=== PATIENT | male | born 1940 | race Caucasian/White ===

== ENCOUNTER → 2016-09-22 | Outpatient (CLI) | payer MEDICARE, BC ==
--- NOTE | 2016-09-22 16:29 | RADRPT ---
PROCEDURE: XR Pelvis and Hips. CLINICAL INDICATION: Pelvic pain. Bilateral hip pain. TECHNIQUE: Five views. Frontal pelvis. Frontal and lateral right hip. Frontal and lateral left hip. COMPARISON: No prior studies are available for comparison. FINDINGS: There are degenerative changes of the right hip with joint space narrowing, osteophytes, subarticula r sclerosis, subarticular cysts, and mild deformity. There are degenerative changes of the left hip with joint space narrowing, osteophytes, subarticular sclerosis, and small cysts. There is no fracture or dislocation. There is no other lytic lesion. IMPRESSION: 1. Severe degenerative changes of the right hip. 2. Moderate degenerative changes of the left hip. RPTAT: QQ .Ish Hyatt MD, MD Date Time Electronically viewed and signed by .Ish Hyatt MD, on 09/22/2016 16:29 .R/
--- NOTE | 2016-09-22 16:30 | RADRPT ---
PROCEDURE: XR Knees. CLINICAL INDICATION: Bilateral knee pain. TECHNIQUE: Total of eight views. Weightbearing frontal, oblique, and lateral views of the both kn ees. Patellar views of both knees. COMPARISON: No prior study is available for comparison. FINDINGS: There is no fracture or dislocation. The soft tissues are normal. There are degenerative changes of both knees with osteophytes arising from all 3 joint compartment m argins bilaterally. There is bilateral medial and lateral joint compartment narrowing. There is no lytic or blastic lesion. There is no radiopaque foreign body. IMPRESSION: 1. Moderate degenerative changes of both knees. RPTAT: QQ .Ish Hyatt MD, MD Date Time Electronically viewed and signed by .Ish Hyatt MD, MD on 09/22/2016 16:30 .R/
== END | disposition home or self-care (01) ==
LOC: HKI 15:04
PROVIDERS: ATTEND Orthopaedic Surgery
DX: M16.0 Bilateral primary osteoarthritis of hip (principal); M25.551 Pain in right hip; M25.552 Pain in left hip; M25.562 Pain in left knee; M25.561 Pain in right knee
CPT/HCPCS: 73523; 73564; G0463

== ENCOUNTER → 2016-10-23 | Outpatient (CLI) | payer MEDICARE, BC | END | disposition home or self-care (01) | LOC: HKI 10:58 | PROVIDERS: ATTEND Orthopaedic Surgery | DX: M25.551 Pain in right hip (principal); M16.11 Unilateral primary osteoarthritis, right hip | CPT/HCPCS: 87081; G0463 ==

== ENCOUNTER 2016-10-31 05:10 | Inpatient (IN) | payer MEDICARE, BC ==
[~2016-10-31] VITALS: Ht 188 cm; Wt 87.5 kg
[2016-10-31] VITALS (31 sets, daily range): BP systolic 113–180; BP diastolic 52–76; PULSE 42–63; RESP 5–20; Ht 188 cm; Wt 87.5 kg
[2016-10-31] MEDS ORDERED: ONDANSETRON 4 MG INJ ONE ×2 (06:06→07:05)
[2016-10-31] MEDS ORDERED: ONDANSETRON 4 MG INJ IV SCH (06:30)
[2016-10-31] MEDS ORDERED: DEXAMETHASONE 4 MG/ML 1 ML INJ IV SCH (06:30)
[2016-10-31] MEDS ORDERED: BACITRACIN 50000 UNITS INJ ONE (06:34)
[2016-10-31] MEDS ORDERED: POLYMYXIN B 500000 UNIT INJ ONE (06:37)
[2016-10-31] MEDS ORDERED: VANCOMYCIN 1 GM INJ ONE (06:37)
[2016-10-31] MEDS ORDERED: SODIUM CL BACTERIOSTATIC 30 ML INJ ONE (06:37)
[2016-10-31] MEDS ORDERED: DILT240C85 PO (06:51)
[2016-10-31] MEDS ORDERED: LIRA0.6P SQ (06:51)
[2016-10-31] MEDS ORDERED: LABE200T3 PO (06:51)
[2016-10-31] MEDS ORDERED: VITAMIN D PO (06:51)
[2016-10-31] MEDS ORDERED: METF500T4 PO (06:51)
[2016-10-31] MEDS ORDERED: LANT3I SC (06:51)
[2016-10-31] MEDS ORDERED: VALS1TAB76 PO (06:51)
[2016-10-31] MEDS ORDERED: ATOR20TA65 PO (06:51)
[2016-10-31] MEDS ORDERED: NOVO3I SC (06:51)
[2016-10-31] MEDS ORDERED: GLIP-95 PO (06:51)
[2016-10-31] MEDS ORDERED: DOCU100T9 PO (06:51)
[2016-10-31] MEDS ORDERED: ENAL10TA PO (06:51)
[2016-10-31] MEDS ORDERED: CLON-379 PO (06:51)
[2016-10-31] MEDS ORDERED: HYDR-906 PO (06:51)
[2016-10-31] MEDS ORDERED: ZOLP5TAB PO (06:51)
[2016-10-31] MEDS ORDERED: BUPIVACAINE LIPOSOME/PF 266 MG/20 ML VIAL INFIL SCH (07:00)
[2016-10-31] MEDS ORDERED: traMADOL 50 MG TAB X 1 DOSE PO SCH (07:00)
[2016-10-31] MEDS ORDERED: TRANEXAMIC ACID 920 MG in SOD CHLORIDE 0.9% 100 ML IVPB SCH (07:00)
[2016-10-31] MEDS ORDERED: TRANEXAMIC ACID 920 MG in SOD CHLORIDE 0.9% 90.8 ML IV SCH (07:00)
[2016-10-31] MEDS ORDERED: oxyCODONE (CR) 10 MG TAB [oxyCONTIN] X1 DOSE PO SCH (07:00)
[2016-10-31] MEDS ORDERED: LACTATED RINGER'S 1,000 ML IV SCH (07:00)
[2016-10-31] MEDS ORDERED: CEFAZOLIN 2GM/50 ML (PMX) 50 ML X1 BEFORE INCISION IVPB SCH (07:00)
[2016-10-31] MEDS ORDERED: PAIN COCKTAIL-CEFUROXIME IRR SCH ×7 (07:00)
[2016-10-31] MEDS ORDERED: CELECOXIB 400 MG PO X1 DOSE PO SCH (07:00)
[2016-10-31] MEDS ORDERED: PREGABALIN 300 MG PO X1 PO SCH (07:00)
[2016-10-31] MEDS ORDERED: NEOSTIGMINE 3 MG/3 ML SYRINGE ONE (07:04)
[2016-10-31] MEDS ORDERED: GLYCOPYRROLATE 0.4 MG INJ ONE (07:04)
[2016-10-31] MEDS ORDERED: CEFAZOLIN 1 GM INJ ONE (07:04)
[2016-10-31] MEDS ORDERED: ROCURONIUM 50 MG INJ ONE (07:04)
[2016-10-31] MEDS ORDERED: PROPOFOL 20 ML ONE (07:04)
[2016-10-31] MEDS ORDERED: FENTAnyl 50 MCG/ML VIAL ONE (07:05)
[2016-10-31] MEDS ORDERED: MIDAZOLAM 1 MG/ML 2 ML INJ ONE (07:05)
[2016-10-31] MEDS ORDERED: DEXAMETHASONE 4 MG/ML 1 ML INJ ONE (07:05)
--- NOTE | 2016-10-31 07:17 | HPN ---
Date/Time of Note Date/Time of Note DATE: 10/31/16 TIME: 07:17 Interval H&P Admission Note Pt. seen H&P reviewed: No system changes No changes from H&P on 10/18/[address] Alexandr ALVAREZ,MAGALI Sneed MD Oct 31, 2016 07:17
[2016-10-31] MEDS ORDERED: MINERAL OIL LIGHT 10 ML VIAL ONE (07:25)
[2016-10-31] MEDS ORDERED: OXYCODONE/ACETAMINOPHEN (5/325) TAB PO PRN ×2 (08:00)
[2016-10-31] MEDS ORDERED: LABETALOL HCL 20MG INJ IV PRN (08:00)
[2016-10-31] MEDS ORDERED: EPHEDrine SULFATE 50 MG/5 ML SYG IV PRN (08:00)
[2016-10-31] MEDS ORDERED: FENTAnyl 50 MCG/ML VIAL IV PRN ×3 (08:00)
[2016-10-31] MEDS ORDERED: TRIMETHOBENZAMIDE 100 MG/ML VIAL IM PRN (08:00)
[2016-10-31] MEDS ORDERED: hydrALAzine 20 MG INJ IV PRN (08:00)
[2016-10-31] MEDS ORDERED: MEPERIDINE 25 MG INJ IV PRN (08:00)
[2016-10-31] MEDS ORDERED: MIDAZOLAM 1 MG/ML 2 ML INJ IV PRN (08:00)
[2016-10-31] MEDS ORDERED: ONDANSETRON 4 MG INJ IV PRN ×2 (08:00→10:00)
[2016-10-31] MEDS ORDERED: HYDROmorphONE (0.2 MG/ML) 10ML SYG IV PRN ×3 (08:00)
[2016-10-31] MEDS ORDERED: DIPHENHYDRAMINE 50 MG INJ IV PRN (08:00)
[2016-10-31] MEDS ORDERED: ETOMIDATE 20 MG INJ ONE (08:52)
[2016-10-31] MEDS ORDERED: PROPOFOL 100 ML ONE (08:53)
[2016-10-31] MEDS ORDERED: EXPAREL NOTE (BUPIVICAINE LIPOSOMAL) XX SCH (10:00)
[2016-10-31] MEDS ORDERED: HYDROmorphONE 1 MG/ML SYG IV PRN (10:00)
[2016-10-31] MEDS ORDERED: NA PHOSPHATE/BIPHOS 133 ML ENEMA PR PRN (10:00)
[2016-10-31] MEDS ORDERED: ASPIRIN (EC) 325 MG TAB PO ONE (10:00)
[2016-10-31] MEDS ORDERED: MAGNESIUM HYDROXIDE 30ML CUP PO PRN (10:00)
[2016-10-31] MEDS ORDERED: NACL 0.9% 3 ML SYG IV SCH (10:00)
[2016-10-31] MEDS ORDERED: BISACODYL 10 MG SUPP PR PRN (10:00)
--- NOTE | 2016-10-31 10:07 | PN ---
Date/Time of Note Date/Time of Note DATE: 10/31/16 TIME: 10:06 Assessment/Plan Lines/Catheters IV Catheter Type (from Nrsg): Peripheral IV Assessment/Plan Assessment/Plan Stable in PACU, s/p right anterior BENTON -continue Ancef until drain removed -pain meds as needed -ASA/SCDs -Medicine to manage diabetic control -OOB with PT -monitor drain -check AM labs -d/c cordova in AM XR of the right hip is pending at this time Subjective 24 Hr Interval Summary Stable in PACU. Denies pain. Drowsy from anesthesia. Moving all extremities. Exam/Review of Systems Vital Signs Vitals Vital Signs Date Time Temp Pulse Resp B/P Pulse Ox O2 Delivery O2 Flow Rate FiO2 10/31/16 07:01 98.2 52 18 140/65 96 Room Air Exam Free Text/Dictation Hemovac: minimal Dressing dry Incision clean, dry, and intact without redness or drainage 5/5 Quadriceps, Tibialis Anterior, EHL, Gastroc, Soleus, Peroneals Normal sensation Palpable DT/PT, CR <2 sec No distal edema STEFANIE LEE PA-C Oct 31, 2016 10:07
[2016-10-31] MEDS: LACTATED RINGER'S 1,000 ML IV SCH ×2 (10:17→18:23)
[2016-10-31] MEDS: CEFAZOLIN 2 GM/50 ML (PMX) 50 ML IVPB SCH ×2 (10:20→17:40)
--- NOTE | 2016-10-31 10:34 | OPR ---
Date/Time of Note Date/Time of Note DATE: 10/31/16 TIME: 10:33 Operative Report Free Text/Dictation Dictation # [id number] Preoperative Diagnosis Right Hip OA Postoperative Diagnosis Same Operation/Procedure Performed Right Anterior BENTON Surgeon: MAGALI ALVAREZ MD architectural administrative assistant: STEFANIE LEE PA-C Anesthesia: spinal Estimated Blood Loss: 250 - 300 ml's Specimens Femoral Head Grafts/Implants Depuy BENTON Complications: None MAGALI ALVAREZ MD Oct 31, 2016 10:34
[2016-10-31 11:02] LABS: HEMOGLOBIN 10.2 g/dl (14.0-18.0)
[2016-10-31 11:24] LABS: CREATININE 1.25 mg/dl (0.61-1.24); POTASSIUM 3.9 mmol/L (3.5-5.1)
--- NOTE | 2016-10-31 11:33 | OPR ---
DATE OF OPERATION: 10/31/2016 PREOPERATIVE DIAGNOSIS: Right hip osteoarthritis. POSTOPERATIVE DIAGNOSIS: Right hip osteoarthritis. OPERATION PERFORMED: Right anterior total hip arthroplasty. SURGEON: Magali Zelaya MD TELETYPE MECHANIC: MONSE Solis COMPONENTS USED: DePuy size 56 mm Gription [place] cup, 56/36 neutral AltrX polyethylene liner, si ze 7 high offset Actis stem, 36+1.5 ceramic head. ANESTHESIA: Spinal plus general endotracheal intubation plus periarticular injection. ANESTHESIOLOGIST: Dr. Welch. ESTIMATED BLOOD LOSS: 300 mL. INTRAVENOUS FLUIDS: 3 liters of crystalloid. SPECIMENS: Femoral head. DRAINS: Hemovac x1. COMPLICATIONS: None. DISPOSITION: The patient tolerated the procedure well and was taken to the recovery room in stable condition. INDICATIONS: The patient is a 76-year-old gentleman who has had progressive worsening pain in the r ight hip with radiographic evidence of severe osteoarthritis. He has failed nonsurgical means of tr eatment to control his pain including activity modifications, pain medications and ambulatory assist devices. Despite these measures, he has had worsening pain and I felt he would benefit from a tota l hip arthroplasty through an anterior approach. The risks, benefits, and alternatives of the procedure were explained in detail to the patient. I e xplained the risks of the surgery to include, but not be limited to: bleeding and possible need for blood transfusion; infection; pain; stiffness; neurovascular injury with possible numbness, weakness , and/or paralysis anywhere from the hip down to the toes; fracture; instability; dislocation; leg l ength inequality; wear and/or loosening of the prosthesis and possible need for future revision; blo od clots; pulmonary embolism; and anesthetic complications such as heart attack, stroke, GI bleed, p neumonia, and/or . Ample time was allowed for the patient to ask questions, all of which were addressed and answered. The patient understood the risks involved and wished to proceed. Informed c onsent was signed prior to the procedure. PROCEDURE: The patient's right hip was initialed with a marking pen in the preoperative area to iden tify the correct operative site. The patient was brought to the operating room and transferred from the [facility] to the [facility] where a spinal anesthetic was administered. The patient was then anesthetized and intubated. A Garcia catheter was placed. Both feet were placed into well-padd ed boots which were then placed into the leg holders of the traction booms. A timeout was performed to confirm that the right side was the correct operative site. The patient was given 2 g of intrav enous Ancef within one hour prior to the procedure. The operative hip was prepped and draped in the usual sterile fashion. A 10 cm oblique incision was made over the anterior aspect of the hip and carried down through subcu taneous tissue and fat with sharp dissection. The tensor fascia chel was incised along the length o f the wound. The tensor fascia muscle was retracted laterally and the sartorius medially. The anter ior circumflex vessels were identified and tied off with 2-0 silk suture and coagulated with the Peerlyst leah Link utilization review rn. The rectus femoris was elevated off the anterior capsule and an anterior capsu lectomy performed. A femoral neck osteotomy was made and the head removed from the acetabulum. The acetabulum was denuded of cartilage circumferentially, as was the femoral head. Retractors were pl aced around the acetabulum. The remnants of the labrum and ligamentum teres were excised. I reamed the acetabulum to the medial wall and then went into an anatomic position and increased the reamer size in 2 mm increments until I got a good bite and was down to bleeding subchondral bone. The [place] cup was opened and impacted into the acetabulum and sat flush circumferentially, gettin g a good bite. C-arm imaging showed it had about 40 to 45 degrees of abduction and 20 degrees of ant eversion. No acetabular screw was placed. The real liner was opened and impacted into the acetabulum and sat flush circumferentially. Attention was turned towards the femur. The operative leg was carefully lowered to the floor with the leg adducted. The foot was then exter steph rotated to approximately 110 degrees. A posteromedial release was performed to optimize expos ure. The femoral hook was placed underneath the proximal femur and the hydraulic lift was then used to elevate the femur up out of the wound. The tiffanie cutter osteotome was used to remove the remai derrick overhanging greater trochanter. The femur was then broached, going up in one size increments u ntil it sat flush with the neck cut and a stable fit was achieved. The trial neck and head were ass embled and reduced into the acetabulum. Fluoroscopic imaging showed the components to be in good pos ition and the leg lengths and offsets to be equal. At this point, the trial was dislocated and the trial broach removed. The canal was irrigated and d ried. The real stem was opened and impacted into the femur. The trunnion was irrigated and dried, a nd the real femoral head was impacted onto the trunnion, and reduced into the acetabulum. The soft tissues were infiltrated with a mixture of 150 mg of 0.5% Bupivacaine, 8 mg of Duramorph, 3 00 mcg of epinephrine, 30 mg of Toradol, 100 mcg of clonidine, 750 mg of cefuroxime and 86 mL of nor mal saline, followed by an injection of 266 mg of liposomal Bupivacaine. At this point the hip was irrigated with a mixture of betadine/saline and then antibiotic saline with pulsatile lavage. A Hem ovac drain was placed in the deep portion of the wound and brought out the anterolateral thigh. Ther e was good hemostasis. The tensor fascia chel was repaired with a running #1 Vicryl. The deep fat layer was irrigated and closed with 2-0 Stratafix and the subcutaneous layer closed with 3-0 Vicryl and the skin was closed with anne and then sealed with Dermabond. The drain was secured with 3-0 nylon. The sponge and needle counts were correct at the end of the case. The wound was covered with an occ lusive dressing. The patient was awakened, extubated, and taken to the recovery room in stable cond ition. Dictated By: MAGALI BUSTAMANTE/SOFIE Conf#: [id number] DID#: [id number]
--- NOTE | 2016-10-31 12:19 | RADRPT ---
PROCEDURE: XR Pelvis. CLINICAL INDICATION: Status post right hip replacement. TECHNIQUE: Single AP view of the pelvis. COMPARISON: September 22, 2016 FINDINGS: Right hip replacement is identified. The prosthetic components are in appropriate position and alig nment. Diffuse osteopenia is identified. The osseous structures appear intact.. No destructive todd ny lesions are observed. Severe narrowing of the left hip joint is identified. Degenerative changes are seen in the lower lumbar spine. Surgical drain is seen over the right hip. Soft tissue air ov er the right hip is procedural in nature. Garcia catheter is noted in the pelvis.. IMPRESSION: Right hip replacement. Prosthetic components are in appropriate position and alignment. Severe osteoarthritis of the left hip. Degenerative changes in the lower lumbar spine. Osteopenia. RPTAT: AA .Aamir Vigil MD, Date Time Electronically viewed and signed by .Aamir Vigil MD, on 10/31/2016 12:18 .P/
[2016-10-31] MEDS ORDERED: DEXTROSE 50% 50 ML SYRINGE IV PRN ×2 (13:00)
[2016-10-31] MEDS ORDERED: GLUCOSE GEL 15 GRAM TUBE PO PRN ×2 (13:00)
[2016-10-31] MEDS ORDERED: GLUCAGON 1 MG INJ IM PRN (13:00)
[2016-10-31] MEDS ORDERED: GLUCOSE GEL 15 GRAM TUBE BUCCAL PRN (13:00)
[2016-10-31] MEDS ORDERED: TRANEXAMIC ACID 880 MG in SOD CHLORIDE 0.9% 100 ML IVPB ONE ×2 (13:00→16:00)
[2016-10-31] MEDS: traMADol 50 MG TAB PO SCH ×3 (13:01→23:26)
--- NOTE | 2016-10-31 13:06 | CONS ---
DATE OF ADMISSION: 10/31/2016 DATE OF CONSULTATION: 10/31/2016 TYPE OF CONSULTATION: Postoperative Medical Dear Dr. Zelaya: Thank you very much for allowing me to evaluate this 76-year-old male who just underwent right total hip replacement. HISTORICAL EVENTS: As you well know, this patient has had progressive disabling pain involving his right hip, and elected to proceed with surgery. In recovery, he is comfortable without cough, wheez ing, shortness of breath, nausea, vomiting, abdominal or chest pain. PAST MEDICAL HISTORY: Includes: 1. Insulin-dependent diabetes. 2. Hypertension. 3. Hyperlipidemia. 4. History of BPH, undergoing TURP in 08/2016. 5. History of lumbar stenosis, undergoing lumbar decompression in 11/2013 with repeat surgery in . 6. History of right ankle surgery. 7. Bilateral cataract surgery. MEDICATIONS: 1. Valsartan HCT 320/12.5. 2. Liraglutide 1.2 mg subcutaneous. 3. Lantus 10 units per day. 4. Atorvastatin 20 mg per day. 5. Glipizide 10 mg per day. 6. Vasotec 20 mg per day. 7. Labetalol 200 mg b.i.d. 8. Cardizem 240 per day. 9. Metformin 500 b.i.d. 10. NovoLog before meals. 11. Ambien 5 mg. FAMILY HISTORY: To be reviewed later. ALLERGIES: TO BE REVIEWED. PHYSICAL EXAMINATION: GENERAL: Symonds male, no acute distress. VITAL SIGNS: Blood pressure 122/80, pulse 70, respirations 20, he was afebrile. EYES: Extraocular muscles were full. NOSE, MOUTH, AND THROAT: Normal. NECK: Supple. There was no jugular venous distention, thyroid enlargement or adenopathy. Carotids 2+. LUNGS: Clear. HEART: Rhythm regular, no murmur. No third or fourth sound. ABDOMEN: Nontender. Liver and spleen were not palpable. No masses or tenderness were noted. EXTREMITIES: No edema. Calves nontender. NEUROLOGIC: No lateralizing motor weakness. IMPRESSION: 1. Stable postop right total hip replacement. 2. History of hypertension. Medications to be resumed. 3. Diabetes. He will receive before meals short-acting insulin and Lantus long-acting 4. We will monitor daily for signs and symptoms of thromboembolic disease despite appropriate deep venous thrombosis prophylaxis. Dictated By: ASHER DELONG/SOFIE Conf#: [id number] DID#: [id number]
--- NOTE | 2016-10-31 13:46 | RADRPT ---
PROCEDURE: Intraoperative imaging of the right hip with fluoroscopy. CLINICAL INDICATION: Right hip pain. Intraoperative. TECHNIQUE: 12 images of the right hip were obtained in the operating room with an image intensifie r. No radiologist was in attendance. 0.5 minutes of fluoroscopy time was used. COMPARISON: 09/22/2016. FINDINGS: Images demonstrate placement of a total right hip arthroplasty. IMPRESSION: 1. Satisfactory intraoperative imaging of the right hip. RPTAT: QQ .Ish Hyatt MD, MD Date Time Electronically viewed and signed by .Ish Hyatt MD, MD on 10/31/2016 13:45 .R/
[2016-10-31] MEDS ORDERED: INSULIN ASPART [NOVOLOG] 3 ML PEN SC SCH (17:25)
[2016-10-31] MEDS: PANTOPRAZOLE (EC) 40 MG TAB PO SCH (17:41)
[2016-10-31] MEDS ORDERED: INSULIN GLARGINE [LANtus] 3 ML PEN SC SCH (20:00)
[2016-10-31] MEDS: DOCUSATE SODIUM 100 MG CAP PO SCH (20:28)
[2016-10-31] MEDS ORDERED: INSULIN ASPART [NOVOLOG] 3 ML PEN SC ONE ×2 (21:00→23:30)
[2016-10-31] MEDS: ENALAPRIL 10 MG TAB PO SCH (21:57)
[2016-10-31] MEDS: LABETALOL 200 MG TAB PO SCH (21:57)
[2016-11-01 00:15] VITALS: BP 165/62; PULSE 55; RESP 18
[2016-11-01] MEDS: CEFAZOLIN 2 GM/50 ML (PMX) 50 ML IVPB SCH (01:33)
[2016-11-01] MEDS: LACTATED RINGER'S 1,000 ML IV SCH (01:51)
[2016-11-01] MEDS: ACCU-CHEK XX SCH (02:00)
[2016-11-01] MEDS: traMADol 50 MG TAB PO SCH ×4 (05:30→23:36)
[2016-11-01] MEDS: PANTOPRAZOLE (EC) 40 MG TAB PO SCH ×2 (05:30→17:39)
[2016-11-01 05:56] VITALS: BP 180/81; PULSE 54; RESP 18
[2016-11-01 06:14] LABS: HEMATOCRIT 30.6 % (42.0-52.0); HEMOGLOBIN 9.8 g/dl (14.0-18.0)
[2016-11-01 06:41] LABS: CALCIUM 8.9 mg/dl (8.4-10.2); CREATININE 1.35 mg/dl (0.61-1.24); POTASSIUM 4.2 mmol/L (3.5-5.1)
[2016-11-01 06:42] LABS: MAGNESIUM 1.7 mg/dl (1.7-2.5); PHOSPHORUS 3.3 mg/dl (2.5-4.9)
[2016-11-01 07:05] LABS: ADD UMIC YES; UR ASCORBIC ACID NEGATIVE (NEGATIVE); UR BILIRUBIN (Dip) NEGATIVE (NEGATIVE); UR BLOOD (Dip) 1+ mg/dL (NEGATIVE); UR CLARITY CLEAR (CLEAR); UR COLOR STRAW (YELLOW); UR GLUCOSE (Dip) 3+ mg/dL (NEGATIVE); UR KETONES (Dip) NEGATIVE (NEGATIVE); UR LEUKOCYTE ESTERASE (Dip) NEGATIVE Leu/ul (NEGATIVE); UR NITRITE (Dip) NEGATIVE (NEGATIVE); UR RBC 0 /HPF (0-5); UR SPECIFIC GRAVITY (Dip) 1.015 (1.003-1.030); UR TOTAL PROTEIN (Dip) 2+ mg/dl (NEGATIVE); UR UROBILINOGEN (Dip) NEGATIVE (NEGATIVE)
[2016-11-01 07:37] VITALS: BP 197/86; RESP 18
[2016-11-01] MEDS: metFORMIN 500 MG TAB PO SCH ×2 (08:21→12:28)
[2016-11-01] MEDS: HYDROCHLOROTHIAZIDE 12.5 MG CAP PO SCH (08:21)
[2016-11-01] MEDS: ASPIRIN (EC) 325 MG TAB PO SCH ×2 (08:21→20:29)
[2016-11-01] MEDS: DILTIAZEM (CD) 240 MG CAP PO SCH (08:22)
[2016-11-01] MEDS: DOCUSATE SODIUM 100 MG CAP PO SCH ×2 (08:22→20:29)
[2016-11-01] MEDS: ATORVASTATIN 20 MG TAB PO SCH (08:22)
[2016-11-01] MEDS: ENALAPRIL 10 MG TAB PO SCH ×2 (08:22→20:29)
[2016-11-01] MEDS: LABETALOL 200 MG TAB PO SCH ×2 (08:23→21:00)
--- NOTE | 2016-11-01 08:29 | PN ---
Date/Time of Note Date/Time of Note DATE: 11/01/16 TIME: 08:26 Assessment/Plan Lines/Catheters IV Catheter Type (from Nrsg): Peripheral IV Garcia in Place (from Nrsg): Yes Assessment/Plan Assessment/Plan Stable POD #1, s/p right anterior BENTON -d/c abx -pain meds as needed -ASA/SCDs -OOB with PT -drain removed -check AM labs -discharge planning. Will plan to go home upon discharge Subjective 24 Hr Interval Summary No acute overnight events. Denies significant pain. BS elevated but being controlled by Dr. Wright. Did not start PT yesterday. Will plan to go home upon discharge. Exam/Review of Systems Vital Signs Vitals Vital Signs Date Time Temp Pulse Resp B/P Pulse Ox O2 Delivery O2 Flow Rate FiO2 11/01/16 07:37 97.5 95 18 197/86 100 11/01/16 05:56 Room Air 11/01/16 00:15 2.0 Intake and Output 10/31/16 10/31/16 11/01/16 15:00 23:00 07:00 Intake Total 3000 ml 530 ml 1750 ml Output Total 625 ml 490 ml 1230 ml Balance 2375 ml 40 ml 520 ml Exam Free Text/Dictation Hemovac: 345cc Dressing dry Incision clean, dry, and intact without redness or drainage 5/5 Quadriceps, Tibialis Anterior, EHL, Gastroc, Soleus, Peroneals Normal sensation Palpable DT/PT, CR <2 sec No distal edema Results Result Diagram: 11/01/16 0510 11/01/16 0510 STEFANIE LEE PA-C Nov 01, 2016 08:29
--- NOTE | 2016-11-01 08:35 | CONS ---
Date/Time of Note Date/Time of Note DATE: 11/01/16 TIME: 08:32 Assessment/Plan Assessment/Plan Additional Assessment/Plan 1. Doing well post op right hip replacement. 2. Elev sugar in part sec to ?decadron given periop, sugar this am is better, home meds resumed. 3. BP is elevated, meds adjusted 4. IV modified and await this am labs Consultation Date/Type/Reason Admit Date/Time Oct 31, 2016 at 05:10 Initial Consult Date Detailed Summary Respiratory: No shortness of breath Cardiovascular: No chest pain Gastrointestinal: no complaints Genitourinary: no complaints Musculoskeletal: bone/joint pain (mild right hip pain) Exam/Review of Systems Vital Signs Vitals Vital Signs Date Time Temp Pulse Resp B/P Pulse Ox O2 Delivery O2 Flow Rate FiO2 11/01/16 07:37 97.5 95 18 197/86 100 11/01/16 05:56 Room Air 11/01/16 00:15 2.0 Intake and Output 10/31/16 10/31/16 11/01/16 15:00 23:00 07:00 Intake Total 3000 ml 530 ml 1750 ml Output Total 625 ml 490 ml 1230 ml Balance 2375 ml 40 ml 520 ml Exam Neck: No jvd Respiratory: clear to auscultation Cardiovascular: regular rate and rhythm Gastrointestinal: soft Extremities: No edema (and no calf tend) Results Result Diagram: 11/01/16 0510 11/01/16 0510 Results 24 hrs Laboratory Tests Test 10/31/16 09:55 10/31/16 10:50 10/31/16 17:38 10/31/16 17:55 Bedside Glucose 138 459 *H Hemoglobin 10.2 L Hematocrit 31.0 L Sodium Level 141 Potassium Level 3.9 Chloride Level 108 Carbon Dioxide Level 24 Anion Gap 13 Blood Urea Nitrogen 29 H Creatinine 1.25 H Glucose Level 166 436 #*H Calcium Level 9.0 Test 10/31/16 20:16 10/31/16 23:00 11/01/16 01:27 11/01/16 04:00 Bedside Glucose 533 *H 407 *H 320 H Urine Color STRAW Urine Clarity CLEAR Urine pH 5.0 Urine Specific [place] 1.015 Urine Ketones NEGATIVE Urine Nitrite NEGATIVE Urine Bilirubin NEGATIVE Urine Urobilinogen NEGATIVE Urine Leukocyte Esterase NEGATIVE Urine Microscopic RBC 0 Urine Microscopic WBC 2 Urine Hemoglobin 1+ H Urine Glucose 3+ H Urine Total Protein 2+ H Test 11/01/16 05:10 11/01/16 08:20 Hemoglobin 9.8 L Hematocrit 30.6 L Sodium Level 138 Potassium Level 4.2 Chloride Level 102 Carbon Dioxide Level 26 Anion Gap 14 Blood Urea Nitrogen 31 H Creatinine 1.35 H Glucose Level 241 #H Calcium Level 8.9 Phosphorus Level 3.3 Magnesium Level 1.7 Bedside Glucose 275 H Medications Medications Current Medications Miscellaneous Information 1 ea NOTE XX ; Start 10/31/16 at 10:00; Stop 11/04/16 at 09:59 Atorvastatin Calcium (Lipitor) 20 mg DAILY PO Last administered on 11/01/16 08 :22; Admin Dose 20 MG; Start 11/01/16 at 09:00 Clonidine (Catapres) 0.1 mg BID PO Last administered on 11/01/16 05:30; Admin Dose 0.1 MG; Start 10/31/16 at 21:00 Diltiazem HCl (Cardizem Cd) 240 mg DAILY PO Last administered on 11/01/16 08: 22; Admin Dose 240 MG; Start 11/01/16 at 09:00 Enalapril Maleate (Vasotec) 10 mg BID PO Last administered on 11/01/16 08:22; Admin Dose 10 MG; Start 10/31/16 at 21:00 Labetalol HCl (Normodyne) 200 mg BID PO Last administered on 11/01/16 08:23; Admin Dose 200 MG; Start 10/31/16 at 21:00 Valsartan 160 mg 160 mg DAILY PO Last administered on 11/01/16 08:22; Admin Dose 160 MG; Start 11/01/16 at 09:00 Lactated Ringer's (Lr) 1,000 ml @ 125 mls/hr Q8H IV Last administered on 18:23; Admin Dose 125 MLS/HR; Start 10/31/16 at 09:51 Tramadol HCl (Ultram) 50 mg Q6 PO Last administered on 11/01/16 05:30; Admin Dose 50 MG; Start 10/31/16 at 12:00; Stop 11/03/16 at 11:59 Acetaminophen/ Hydrocodone Bitart (Coleman (5/325)) 1 tab Q4H PRN PO PAIN LEVEL 1 -3; Start 10/31/16 at 10:00 Acetaminophen/ Hydrocodone Bitart (Coleman (5/325)) 2 tab Q4H PRN PO PAIN LEVEL 4 -7; Start 10/31/16 at 10:00 Hydromorphone HCl (Dilaudid) 1 mg Q3H PRN IV PAIN LEVEL 8-10; Start 10/31/16 at 10:00 Ondansetron HCl (Zofran Inj) 4 mg Q6H PRN IV NAUSEA AND/OR VOMITING; Start at 10:00 Bisacodyl (Dulcolax Supp) 10 mg Q12H PRN NE CONSTIPATION; Start 10/31/16 at 10: 00 Magnesium Hydroxide (Milk Of Mag) 30 ml BID PRN PO CONSTIPATION; Start at 10:00 Sodium Biphosphate/ Sodium Phosphate (Fleet Enema) 133 ml DAILY PRN NE CONSTIPATION; Start 10/31/16 at 10:00 Docusate Sodium (Colace) 100 mg BID PO Last administered on 11/01/16 08:22; Admin Dose 100 MG; Start 10/31/16 at 21:00 Diphenhydramine HCl (Benadryl) 25 mg Q6H PRN PO PRURITUS; Start 10/31/16 at 10: 00 Aspirin (Ecotrin) 325 mg BID PO Last administered on 11/01/16 08:21; Admin Dose 325 MG; Start 11/01/16 at 09:00 Pantoprazole (Protonix Tab) 40 mg BID@06,18 PO Last administered on 11/01/16 05:30; Admin Dose 40 MG; Start 10/31/16 at 18:00 Hydrochlorothiazide (Hydrochlorothiazide) 12.5 mg DAILY PO Last administered on 11/01/16 08:21; Admin Dose 12.5 MG; Start 11/01/16 at 09:00 Insulin Glargine (Lantus) 8 unit DAILY@20 SC Last administered on 10/31/16 20: 23; Admin Dose 8 UNIT; Start 10/31/16 at 20:00 Miscellaneous Information 1 ea NOTE XX ; Start 10/31/16 at 13:00 Glucose (Glutose) 15 gm Q15M PRN PO DECREASED GLUCOSE; Start 10/31/16 at 13:00 Glucose (Glutose) 22.5 gm Q15M PRN PO DECREASED GLUCOSE; Start 10/31/16 at 13: 00 Dextrose (D50w Syringe) 25 ml Q15M PRN IV DECREASED GLUCOSE; Start 10/31/16 at 13:00 Dextrose (D50w Syringe) 50 ml Q15M PRN IV DECREASED GLUCOSE; Start 10/31/16 at 13:00 Glucagon (Glucagen) 1 mg Q15M PRN IM DECREASED GLUCOSE; Start 10/31/16 at 13:00 Glucose (Glutose) 15 gm Q15M PRN BUCCAL DECREASED GLUCOSE; Start 10/31/16 at 13 :00 Diagnostic Test (Pha) (Accu-Chek) 1 ea 02 XX ; Start 11/01/16 at 02:00 ASHER LAEJANDRA MD Nov 01, 2016 08:35
[2016-11-01] MEDS ORDERED: VALSARTAN 160 MG TAB PO SCH (09:00)
[2016-11-01] MEDS: INSULIN ASPART [NOVOLOG] 3 ML PEN SC SCH ×4 (09:01→20:40)
[2016-11-01 09:21] LABS: ALBUMIN 3.7 g/dl (3.3-4.9); BILIRUBIN,INDIRECT 0.1 mg/dl (0-1.1); BILIRUBIN,TOTAL 0.1 mg/dl (0.2-1.3); MAGNESIUM 1.7 mg/dl (1.7-2.5); PHOSPHORUS 3.4 mg/dl (2.5-4.9); TOTAL PROTEIN 5.6 g/dl (6.1-8.1)
[2016-11-01] MEDS: VALSARTAN 160 MG TAB PO SCH (10:08)
[2016-11-01] MEDS: SOD CHLORIDE 0.9% 1,000 ML IV SCH ×2 (10:09→22:27)
[2016-11-01 10:11] VITALS: BP 155/68; PULSE 68
[2016-11-01 12:43] VITALS: BP 152/70; PULSE 43
--- NOTE | 2016-11-01 13:42 | PDOCDIS ---
Discharge Instructions DIAGNOSIS Discharge Diagnosis: s/p right anterior BENTON CONDITION Patient Condition: Good HOME CARE INSTRUCTIONS: Special Diet: CARB CONTROLLED, diabetic diet ACTIVITY: Activity Restrictions: Slowly Increase Activity Rest between Activity Avoid heavy lifting Do not operate Machinery Do not operate Power Tool Avoid Heavy Housework Keep Limb Elevated Bathing Restrictions: Shower FOLLOW UP/APPOINTMENTS Appointments follow up in the office in 1 week OTHER ORDERS: Other Orders: Physical Therapy: Three times per week at home x 2 weeks Daily in Rehab/SNF WB STATUS: WBAT Strengthening exercises for both upper and un-operated lower extremities. 1. Gait training with front wheeled walker 2. Wide base gait, no pivot turns. 3. Abductor strengthening. 4. Quadriceps and hamstring strengthening. 5. May switch to cane in contra lateral hand 6 weeks after surgery. 6. Physical Therapy can open case if nursing is not available. 7. Ice Packs while at rest to surgical wound for 20 minutes, 3 times/day. 8. Patient requires mobile SCDs to reduce risk of developing DVT following BENTON. Patient will use the mobile SCDs for 30 days postoperatively. Hip Precautions: No posterior hip precautions. Bathing assistance by home health aide twice weekly if Medicare patient. Occupational Therapy: Evaluation for assistive devices and ADL training. Wound Care: Keep incision dry & covered with Tegaderm until first visit with Dr. Zelaya Anticoagulation Orders: Enteric Coated Aspirin 325 mg po bid x 6 weeks from date of surgery Follow-up:Call for an appointment with Dr. Zelaya in 1 week after discharged from hospital at DME Orders: FERNANDO, 3-in-1 Commode, Mobile SCDs STEFANIE LEE PA-C Nov 01, 2016 13:42
[2016-11-01] MEDS ORDERED: PANT40TA4 PO (13:44)
[2016-11-01] MEDS ORDERED: ASPI325T32 PO (13:44)
[2016-11-01] MEDS ORDERED: HYDR-3498 PO (13:44)
[2016-11-01] MEDS ORDERED: TRAM50TA2 PO (13:44)
[2016-11-01] MEDS: HYDROCODONE/APAP (5/325) TAB PO PRN ×2 (15:55→20:33)
[2016-11-01 19:46] VITALS: BP 178/73; RESP 18
[2016-11-01] MEDS ORDERED: INSULIN GLARGINE [LANtus] 3 ML PEN SC SCH (20:00)
[2016-11-02 00:09] VITALS: BP 168/78; RESP 20
[2016-11-02] MEDS: DIPHENHYDRAMINE 25 MG CAP PO PRN (01:36)
[2016-11-02] MEDS: ACCU-CHEK XX SCH (02:00)
[2016-11-02] MEDS: PANTOPRAZOLE (EC) 40 MG TAB PO SCH ×2 (05:40→17:55)
[2016-11-02] MEDS: traMADol 50 MG TAB PO SCH ×3 (05:41→17:55)
[2016-11-02 06:14] LABS: HEMATOCRIT 28.1 % (42.0-52.0)
[2016-11-02 06:47] LABS: CALCIUM 8.3 mg/dl (8.4-10.2); CREATININE 1.42 mg/dl (0.61-1.24); POTASSIUM 3.8 mmol/L (3.5-5.1)
[2016-11-02] MEDS ORDERED: glipiZIDE 10 MG TAB PO SCH (07:20)
[2016-11-02 07:37] VITALS: BP 196/84; RESP 19
[2016-11-02] MEDS: INSULIN ASPART [NOVOLOG] 3 ML PEN SC SCH ×2 (07:50→17:25)
--- NOTE | 2016-11-02 07:59 | PN ---
Date/Time of Note Date/Time of Note DATE: 11/02/16 TIME: 07:57 Assessment/Plan Lines/Catheters IV Catheter Type (from Nrsg): Peripheral IV Garcia in Place (from Nrsg): Yes Assessment/Plan Assessment/Plan Stable POD #2, s/p right anterior BENTON -pain meds as needed -ASA/SCDs -OOB with PT -dressing changed -check AM labs -d/c planning. Plan to transfer to [facility] tomorrow Subjective 24 Hr Interval Summary No acute overnight events. Denies significant pain. Progressing PT. VSS, afebrile. Would like to go to [facility] upon discharge. Exam/Review of Systems Vital Signs Vitals Vital Signs Date Time Temp Pulse Resp B/P Pulse Ox O2 Delivery O2 Flow Rate FiO2 11/02/16 07:37 97.0 72 19 196/84 97 11/01/16 05:56 Room Air 11/01/16 00:15 2.0 Intake and Output 11/01/16 11/01/16 11/02/16 15:00 23:00 07:00 Intake Total 300 ml 2060 ml 750 ml Output Total 100 ml 900 ml Balance 300 ml 1960 ml -150 ml Exam Free Text/Dictation Dressing dry Incision clean, dry, and intact without redness or drainage 5/5 Quadriceps, Tibialis Anterior, EHL, Gastroc, Soleus, Peroneals Normal sensation Palpable DT/PT, CR <2 sec No distal edema Results Result Diagram: 11/02/16 0500 11/02/16 0500 STEFANIE LEE PA-C Nov 02, 2016 07:59
[2016-11-02] MEDS: HYDROCODONE/APAP (5/325) TAB PO PRN ×3 (08:13→22:47)
[2016-11-02] MEDS: VALSARTAN 160 MG TAB PO SCH (08:50)
[2016-11-02] MEDS: ASPIRIN (EC) 325 MG TAB PO SCH ×2 (08:51→20:33)
[2016-11-02] MEDS: DILTIAZEM (CD) 240 MG CAP PO SCH (08:52)
[2016-11-02] MEDS: DOCUSATE SODIUM 100 MG CAP PO SCH ×2 (08:52→21:00)
[2016-11-02] MEDS: ENALAPRIL 10 MG TAB PO SCH (08:52)
[2016-11-02] MEDS: metFORMIN 500 MG TAB PO SCH ×2 (08:52→13:14)
[2016-11-02] MEDS: LABETALOL 200 MG TAB PO SCH ×2 (08:53→21:00)
[2016-11-02] MEDS: HYDROCHLOROTHIAZIDE 12.5 MG CAP PO SCH (08:53)
[2016-11-02] MEDS: ATORVASTATIN 20 MG TAB PO SCH (08:53)
[2016-11-02] MEDS: SOD CHLORIDE 0.9% 1,000 ML IV SCH ×2 (09:30→21:58)
[2016-11-02 10:53] VITALS: BP 135/65; PULSE 69
[2016-11-02 12:38] VITALS: BP 145/67; PULSE 47; RESP 16
--- NOTE | 2016-11-02 12:45 | CONS ---
Date/Time of Note Date/Time of Note DATE: 11/02/16 TIME: 12:43 Assessment/Plan Assessment/Plan Additional Assessment/Plan 1. Doing well post op right hip replacement. 2. Mild ARF, will dc vasotec, u/a, Corrine will be obtained. 3. CHO are low, lantus to be reduced, ac insulin modified Consultation Date/Type/Reason Admit Date/Time Oct 31, 2016 at 05:10 Detailed Summary Respiratory: No cough, No shortness of breath Cardiovascular: No chest pain Gastrointestinal: no complaints Genitourinary: no complaints Musculoskeletal: bone/joint pain (mild right hip pain) Exam/Review of Systems Vital Signs Vitals Vital Signs Date Time Temp Pulse Resp B/P Pulse Ox O2 Delivery O2 Flow Rate FiO2 11/02/16 12:38 47 16 145/67 11/02/16 07:37 97.0 97 11/01/16 05:56 Room Air 11/01/16 00:15 2.0 Intake and Output 11/01/16 11/01/16 11/02/16 15:00 23:00 07:00 Intake Total 300 ml 2060 ml 750 ml Output Total 100 ml 900 ml Balance 300 ml 1960 ml -150 ml Exam Neck: No jvd Respiratory: clear to auscultation Cardiovascular: regular rate and rhythm Gastrointestinal: soft Extremities: No edema (and no calf tend) Results Result Diagram: 11/02/16 0500 11/02/16 0500 Results 24 hrs Laboratory Tests Test 11/01/16 17:39 11/01/16 20:25 11/02/16 01:34 11/02/16 05:00 Bedside Glucose 211 186 127 Hemoglobin 9.0 L Hematocrit 28.1 L Sodium Level 136 Potassium Level 3.8 Chloride Level 103 Carbon Dioxide Level 28 Anion Gap 9 # Blood Urea Nitrogen 29 H Creatinine 1.42 H Glucose Level 61 #L Calcium Level 8.3 L Test 11/02/16 08:08 11/02/16 08:47 11/02/16 12:15 Bedside Glucose 66 L 130 119 Medications Medications Current Medications Miscellaneous Information 1 ea NOTE XX ; Start 10/31/16 at 10:00; Stop 11/04/16 at 09:59 Atorvastatin Calcium (Lipitor) 20 mg DAILY PO Last administered on 11/02/16t 08 :53; Admin Dose 20 MG; Start 11/01/16 at 09:00 Diltiazem HCl (Cardizem Cd) 240 mg DAILY PO Last administered on 11/02/16 08: 52; Admin Dose 240 MG; Start 11/01/16 at 09:00 Enalapril Maleate (Vasotec) 10 mg BID PO Last administered on 11/02/16 08:52; Admin Dose 10 MG; Start 10/31/16 at 21:00 Labetalol HCl (Normodyne) 200 mg BID PO Last administered on 11/02/16 08:53; Admin Dose 200 MG; Start 10/31/16 at 21:00 Tramadol HCl (Ultram) 50 mg Q6 PO Last administered on 11/02/16 12:35; Admin Dose 50 MG; Start 10/31/16 at 12:00; Stop 11/03/16 at 11:59 Acetaminophen/ Hydrocodone Bitart ([place] (5/325)) 1 tab Q4H PRN PO PAIN LEVEL 1 -3 Last administered on 11/02/16 08:13; Admin Dose 1 TAB; Start 10/31/16 at 10: 00 Acetaminophen/ Hydrocodone Bitart ([place] (5/325)) 2 tab Q4H PRN PO PAIN LEVEL 4 -7 Last administered on 11/01/16 20:33; Admin Dose 2 TAB; Start 10/31/16 at 10: 00 Hydromorphone HCl (Dilaudid) 1 mg Q3H PRN IV PAIN LEVEL 8-10; Start 10/31/16 at 10:00 Ondansetron HCl (Zofran Inj) 4 mg Q6H PRN IV NAUSEA AND/OR VOMITING; Start at 10:00 Bisacodyl (Dulcolax Supp) 10 mg Q12H PRN [place] CONSTIPATION; Start 10/31/16 at 10: 00 Magnesium Hydroxide (Milk Of Mag) 30 ml BID PRN PO CONSTIPATION; Start at 10:00 Sodium Biphosphate/ Sodium Phosphate (Fleet Enema) 133 ml DAILY PRN [place] CONSTIPATION; Start 10/31/16 at 10:00 Docusate Sodium (Colace) 100 mg BID PO Last administered on 11/02/16 08:52; Admin Dose 100 MG; Start 10/31/16 at 21:00 Diphenhydramine HCl (Benadryl) 25 mg Q6H PRN PO PRURITUS Last administered on 01:36; Admin Dose 25 MG; Start 10/31/16 at 10:00 Aspirin (Ecotrin) 325 mg BID PO Last administered on 11/02/16 08:51; Admin Dose 325 MG; Start 11/01/16 at 09:00 Pantoprazole (Protonix Tab) 40 mg BID@,18 PO Last administered on 11/02/16 05:40; Admin Dose 40 MG; Start 10/31/16 at 18:00 Miscellaneous Information 1 ea NOTE XX ; Start 10/31/16 at 13:00 Glucose (Glutose) 15 gm Q15M PRN PO DECREASED GLUCOSE; Start 10/31/16 at 13:00 Glucose (Glutose) 22.5 gm Q15M PRN PO DECREASED GLUCOSE; Start 10/31/16 at 13: 00 Dextrose (D50w Syringe) 25 ml Q15M PRN IV DECREASED GLUCOSE; Start 10/31/16 at 13:00 Dextrose (D50w Syringe) 50 ml Q15M PRN IV DECREASED GLUCOSE; Start 10/31/16 at 13:00 Glucagon (Glucagen) 1 mg Q15M PRN IM DECREASED GLUCOSE; Start 10/31/16 at 13:00 Glucose (Glutose) 15 gm Q15M PRN BUCCAL DECREASED GLUCOSE; Start 10/31/16 at 13 :00 Diagnostic Test (Pha) (Accu-Chek) 1 ea 02 XX ; Start 11/01/16 at 02:00 Valsartan 320 mg 320 mg DAILY PO Last administered on 11/02/16 08:50; Admin Dose 320 MG; Start 11/01/16 at 09:00 Sodium Chloride (NS) 1,000 ml @ 80 mls/hr [id number] IV Last administered on 11/01 22:27; Admin Dose 80 MLS/HR; Start 11/01/16 at 08:30 Clonidine (Catapres) 0.05 mg TID PO ; Start 11/02/16 at 13:00 Insulin Glargine (Lantus) 8 unit DAILY@20 SC ; Start 11/02/16 at 20:00; Status ASHER MONTANA MD Nov 02, 2016 12:45
[2016-11-02] MEDS ORDERED: AMLODIPINE 2.5 MG TAB PO SCH (13:00)
[2016-11-02 15:50] LABS: ADD UMIC YES; UR ASCORBIC ACID NEGATIVE (NEGATIVE); UR BILIRUBIN (Dip) NEGATIVE (NEGATIVE); UR BLOOD (Dip) NEGATIVE (NEGATIVE); UR CLARITY CLEAR (CLEAR); UR COLOR YELLOW (YELLOW); UR GLUCOSE (Dip) NEGATIVE (NEGATIVE); UR KETONES (Dip) NEGATIVE (NEGATIVE); UR LEUKOCYTE ESTERASE (Dip) NEGATIVE Leu/ul (NEGATIVE); UR NITRITE (Dip) NEGATIVE (NEGATIVE); UR RBC 1 /HPF (0-5); UR SPECIFIC GRAVITY (Dip) 1.019 (1.003-1.030); UR TOTAL PROTEIN (Dip) 2+ mg/dl (NEGATIVE); UR UROBILINOGEN (Dip) NEGATIVE (NEGATIVE)
[2016-11-02 16:01] LABS: PROTEIN/CREAT RATIO 0.62 RATIO
[2016-11-02] MEDS ORDERED: INSULIN GLARGINE [LANtus] 3 ML PEN SC SCH (20:00)
[2016-11-02 20:02] VITALS: BP 146/67; RESP 20
[2016-11-02 23:41] VITALS: BP 161/72; RESP 18
[2016-11-03] MEDS: traMADol 50 MG TAB PO SCH ×2 (00:28→06:11)
[2016-11-03] MEDS: DIPHENHYDRAMINE 25 MG CAP PO PRN (00:28)
[2016-11-03] MEDS: ACCU-CHEK XX SCH (01:54)
[2016-11-03] MEDS: HYDROCODONE/APAP (5/325) TAB PO PRN ×2 (03:51→12:39)
[2016-11-03 05:52] LABS: HEMATOCRIT 26.3 % (42.0-52.0); HEMOGLOBIN 8.5 g/dl (14.0-18.0)
[2016-11-03] MEDS: PANTOPRAZOLE (EC) 40 MG TAB PO SCH (06:11)
[2016-11-03 06:51] LABS: CALCIUM 8.3 mg/dl (8.4-10.2); CREATININE 1.42 mg/dl (0.61-1.24); POTASSIUM 3.5 mmol/L (3.5-5.1)
[2016-11-03 07:34] VITALS: BP 181/77; RESP 19
--- NOTE | 2016-11-03 08:14 | CONS ---
Date/Time of Note Date/Time of Note DATE: 11/03/16 TIME: 08:11 Assessment/Plan Assessment/Plan Additional Assessment/Plan 1. Stable post op right hip replacement. 2. BP is still eelvated, will dc iv, start hct, inc amlodipine 3. CHO are now acceptable 4. Anemia, stable, will start iron, check iron studies tomm and give procrit 5. Can dc if ok with ortho Consultation Date/Type/Reason Admit Date/Time Oct 31, 2016 at 05:10 Detailed Summary Respiratory: No cough, No shortness of breath Gastrointestinal: no complaints Genitourinary: no complaints Musculoskeletal: bone/joint pain (mild-mod rfighthip pain) Exam/Review of Systems Vital Signs Vitals Vital Signs Date Time Temp Pulse Resp B/P Pulse Ox O2 Delivery O2 Flow Rate FiO2 11/03/16 07:34 97.0 55 19 181/77 98 11/01/16 05:56 Room Air 11/01/16 00:15 2.0 Intake and Output 11/02/16 11/02/16 11/03/16 15:00 23:00 07:00 Intake Total 320 ml 900 ml 1050 ml Output Total 1250 ml Balance 320 ml 900 ml -200 ml Exam Neck: No jvd Respiratory: clear to auscultation Cardiovascular: regular rate and rhythm Gastrointestinal: soft Extremities: No edema (and no calf tend bilat) Results Result Diagram: 11/03/16 0425 11/03/16 0425 Results 24 hrs Laboratory Tests Test 11/02/16 08:47 11/02/16 12:15 11/02/16 15:35 11/02/16 17:33 Bedside Glucose 130 119 69 L Urine Color YELLOW Urine Clarity CLEAR Urine pH 5.0 Urine Specific [place] 1.019 Urine Ketones NEGATIVE Urine Nitrite NEGATIVE Urine Bilirubin NEGATIVE Urine Urobilinogen NEGATIVE Urine Leukocyte Esterase NEGATIVE Urine Microscopic RBC 1 Urine Microscopic WBC 5 Urine Hemoglobin NEGATIVE Urine Random Creatinine 147.92 Urine Random Sodium 43 Urine Protein/Creatinine Ratio 0.62 Urine Glucose NEGATIVE Urine Total Protein 92.0 H Test 11/02/16 17:51 11/02/16 18:08 11/02/16 20:29 11/03/16 04:25 Bedside Glucose 69 L 100 193 Hemoglobin 8.5 L Hematocrit 26.3 L Sodium Level 139 Potassium Level 3.5 Chloride Level 104 Carbon Dioxide Level 26 Anion Gap 13 Blood Urea Nitrogen 28 H Creatinine 1.42 H Glucose Level 68 L Calcium Level 8.3 L Medications Medications Current Medications Miscellaneous Information 1 ea NOTE XX ; Start 10/31/16 at 10:00; Stop 11/04/16 at 09:59 Atorvastatin Calcium (Lipitor) 20 mg DAILY PO Last administered on 11/02/16 08 :53; Admin Dose 20 MG; Start 11/01/16 at 09:00 Diltiazem HCl (Cardizem Cd) 240 mg DAILY PO Last administered on 11/02/16 08: 52; Admin Dose 240 MG; Start 11/01/16 at 09:00 Labetalol HCl (Normodyne) 200 mg BID PO Last administered on 11/02/16 08:53; Admin Dose 200 MG; Start 10/31/16 at 21:00 Tramadol HCl (Ultram) 50 mg Q6 PO Last administered on 11/03/16 06:11; Admin Dose 50 MG; Start 10/31/16 at 12:00; Stop 11/03/16 at 11:59 Acetaminophen/ Hydrocodone Bitart ([place] (5/325)) 1 tab Q4H PRN PO PAIN LEVEL 1 -3 Last administered on 11/02/16 13:19; Admin Dose 1 TAB; Start 10/31/16 at 10: 00 Acetaminophen/ Hydrocodone Bitart ([place] (5/325)) 2 tab Q4H PRN PO PAIN LEVEL 4 -7 Last administered on 11/03/16 03:51; Admin Dose 2 TAB; Start 10/31/16 at 10: 00 Hydromorphone HCl (Dilaudid) 1 mg Q3H PRN IV PAIN LEVEL 8-10; Start 10/31/16 at 10:00 Ondansetron HCl (Zofran Inj) 4 mg Q6H PRN IV NAUSEA AND/OR VOMITING; Start at 10:00 Bisacodyl (Dulcolax Supp) 10 mg Q12H PRN [place] CONSTIPATION; Start 10/31/16 at 10: 00 Magnesium Hydroxide (Milk Of Mag) 30 ml BID PRN PO CONSTIPATION; Start at 10:00 Sodium Biphosphate/ Sodium Phosphate (Fleet Enema) 133 ml DAILY PRN ID CONSTIPATION; Start 10/31/16 at 10:00 Docusate Sodium (Colace) 100 mg BID PO Last administered on 11/02/16 08:52; Admin Dose 100 MG; Start 10/31/16 at 21:00 Diphenhydramine HCl (Benadryl) 25 mg Q6H PRN PO PRURITUS Last administered on 00:28; Admin Dose 25 MG; Start 10/31/16 at 10:00 Aspirin (Ecotrin) 325 mg BID PO Last administered on 11/02/16 20:33; Admin Dose 325 MG; Start 11/01/16 at 09:00 Pantoprazole (Protonix Tab) 40 mg BID@06,18 PO Last administered on 11/03/16 06:11; Admin Dose 40 MG; Start 10/31/16 at 18:00 Miscellaneous Information 1 ea NOTE XX ; Start 10/31/16 at 13:00 Glucose (Glutose) 15 gm Q15M PRN PO DECREASED GLUCOSE; Start 10/31/16 at 13:00 Glucose (Glutose) 22.5 gm Q15M PRN PO DECREASED GLUCOSE; Start 10/31/16 at 13: 00 Dextrose (D50w Syringe) 25 ml Q15M PRN IV DECREASED GLUCOSE; Start 10/31/16 at 13:00 Dextrose (D50w Syringe) 50 ml Q15M PRN IV DECREASED GLUCOSE; Start 10/31/16 at 13:00 Glucagon (Glucagen) 1 mg Q15M PRN IM DECREASED GLUCOSE; Start 10/31/16 at 13:00 Glucose (Glutose) 15 gm Q15M PRN BUCCAL DECREASED GLUCOSE; Start 10/31/16 at 13 :00 Diagnostic Test (Pha) (Accu-Chek) 1 ea 02 XX ; Start 11/01/16 at 02:00 Valsartan 320 mg 320 mg DAILY PO Last administered on 11/02/16 08:50; Admin Dose 320 MG; Start 11/01/16 at 09:00 Sodium Chloride (NS) 1,000 ml @ 80 mls/hr [id number] IV Last administered on 11/01 22:27; Admin Dose 80 MLS/HR; Start 11/01/16 at 08:30 Clonidine (Catapres) 0.05 mg TID PO Last administered on 11/02/16 20:33; Admin Dose 0.05 MG; Start 11/02/16 at 13:00 Insulin Glargine (Lantus) 8 unit DAILY@20 SC Last administered on 11/02/16 20: 36; Admin Dose 8 UNIT; Start 11/02/16 at 20:00 Amlodipine Besylate (Norvasc) 2.5 mg DAILY PO Last administered on 11/02/16 13 :19; Admin Dose 2.5 MG; Start 11/02/16 at 13:00 ASHER ALEJANDRA MD Nov 03, 2016 08:14
--- NOTE | 2016-11-03 08:21 | PN ---
Date/Time of Note Date/Time of Note DATE: 11/03/16 TIME: 08:19 Assessment/Plan Lines/Catheters IV Catheter Type (from Nrsg): Saline Lock Garcia in Place (from Nrsg): Yes Assessment/Plan Assessment/Plan Stable POD #3, s/p right anterior [place] -pain meds as needed -ASA/SCDs -OOB with PT -dressing changed -transfer to [facility] today -follow up in the office in 1 week Subjective 24 Hr Interval Summary No acute overnight events. Denies significant pain. H&H low but stable. Will plan for transfer to [facility] today. Exam/Review of Systems Vital Signs Vitals Vital Signs Date Time Temp Pulse Resp B/P Pulse Ox O2 Delivery O2 Flow Rate FiO2 11/03/16 07:34 97.0 55 19 181/77 98 11/01/16 05:56 Room Air 11/01/16 00:15 2.0 Intake and Output 11/02/16 11/02/16 11/03/16 15:00 23:00 07:00 Intake Total 320 ml 900 ml 1050 ml Output Total 1250 ml Balance 320 ml 900 ml -200 ml Exam Free Text/Dictation Dressing dry Incision clean, dry, and intact without redness or drainage 5/5 Quadriceps, Tibialis Anterior, EHL, Gastroc, Soleus, Peroneals Normal sensation Palpable DT/PT, CR <2 sec No distal edema Results Result Diagram: 11/03/16 0425 11/03/16 0425 STEFANIE LEE PA-C Nov 03, 2016 08:21
[2016-11-03] MEDS ORDERED: POTASSIUM CHLORIDE (SR) 10 MEQ TAB PO ONE (08:30)
[2016-11-03] MEDS ORDERED: HYDROCHLOROTHIAZIDE 12.5 MG CAP PO SCH (08:30)
[2016-11-03] MEDS ORDERED: FERROUS FUMARATE (SR) TAB PO SCH (09:00)
[2016-11-03] MEDS ORDERED: AMLODIPINE 5 MG TAB PO SCH (09:00)
[2016-11-03] MEDS: DOCUSATE SODIUM 100 MG CAP PO SCH (09:04)
[2016-11-03] MEDS: ATORVASTATIN 20 MG TAB PO SCH (09:05)
[2016-11-03] MEDS: ASPIRIN (EC) 325 MG TAB PO SCH (09:05)
[2016-11-03] MEDS: VALSARTAN 160 MG TAB PO SCH (09:05)
[2016-11-03] MEDS: metFORMIN 500 MG TAB PO SCH ×2 (09:05→12:37)
[2016-11-03] MEDS: LABETALOL 200 MG TAB PO SCH (09:07)
[2016-11-03] MEDS: DILTIAZEM (CD) 240 MG CAP PO SCH (09:08)
--- NOTE | 2016-11-03 09:08 | DS ---
DATE OF ADMISSION: 10/31/2016 DATE OF DISCHARGE: 11/03/2016 CONDITION ON DISCHARGE: Stable. ADMITTING DIAGNOSIS: Right hip osteoarthritis. DISCHARGE DIAGNOSIS: Status post right anterior total hip arthroplasty. PROCEDURE PERFORMED: Right anterior total hip arthroplasty. HOSPITAL COURSE: This is a 76-year-old male who was seen in the clinic complaining of right hip abundio n. X-rays demonstrated advanced osteoarthritis of the right hip and it was thought he would benefit from a right anterior total hip arthroplasty. On 10/31/2016 the patient was admitted and taken to the operating room, where he underwent a right anterior total hip arthroplasty. There were no intra operative complications. The patient tolerated the procedure well. He was taken to the recovery ro om in stable condition. Pain was well controlled with oral pain medication. He was started on aspi rin and SCDs for DVT prophylaxis. He remained hemodynamically stable and neurovascularly intact thr oughout his hospital stay. He began physical therapy on postoperative day 1 and continued to make g ood progress. Ultimately he was deemed stable for transfer on postoperative day #3. Prior to trans kevin to [facility] the incision was inspected and noted to be clean, dry and intact. Dressing lizarraga es were done prior to the patient going to [facility]. LABORATORY ANALYSIS: Hemoglobin 8.5, hematocrit 26.3. Chemistry panel shows a slightly elevated BU N of 20 and creatinine 1.42. Glucose of 68. Sodium 139, potassium 3.5. DISCHARGE MEDICATIONS: 1. [place] 5/325 mg. 2. Tramadol 50 mg. 3. Aspirin 325 mg. 4. Protonix 40 mg. 5. Additionally, the patient should resume all of his normal home medications. DISCHARGE INSTRUCTIONS: The patient will be transferred to [facility] in stable condition. He is to resume a normal diet. He is weightbearing as tolerated on the right lower extremity. He will co ntinue physical therapy at [facility]. He will be transferred with the medications noted above and he is to resume all of his normal home medications. The patient is to call the office or go to the emergency room for any concerns, including increased redness, swelling, drainage, fever or any conc erns regarding the operation or site of incision. FOLLOWUP: The patient to follow up in the office on 11/10/2016. Dictated By: STEFANIE SHEA for MAGALI SMITH/NTS Conf#: [id number] DID#: [id number]
[2016-11-03] MEDS: INSULIN ASPART [NOVOLOG] 3 ML PEN SC SCH ×2 (09:11→12:36)
[2016-11-03 12:30] VITALS: BP 183/81; PULSE 55; RESP 18
[2016-11-03 13:36] VITALS: BP_SYST 135; BP_SYST 164; BP_DIAS 63; BP_DIAS 74; PULSE 55; RESP 16
[2016-11-03] MEDS ORDERED: EPOETIN 10000 UNITS/ML (NON ESRD/NON ONCOLOGY) SC SCH (17:00)
== END 2016-11-03 15:20 | DRG 470 ==
LOC: REC 05:10 → MS1 15:15
PROVIDERS: ADMIT Orthopaedic Surgery; ATTEND Orthopaedic Surgery
PROC: 0SR904A Replacement of Right Hip Joint with Ceramic on Polyethylene Synthetic Substitute, Uncemented, Open Approach (ICD-10-PCS; principal; 2016-10-31 07:00)
DX: M16.11 Unilateral primary osteoarthritis, right hip (principal); N17.9 Acute kidney failure, unspecified; E11.9 Type 2 diabetes mellitus without complications; I10 Essential (primary) hypertension; E78.5 Hyperlipidemia, unspecified; Z79.4 Long term (current) use of insulin
CPT/HCPCS: 72170; 73530; 80048; 80076; 81001; 81003; 82570; 82947; 82962; 83735; 84100; 84300; 85014; 85018; 86850; 86900; 86901; 86920; 87081; 87086; 88304; 97110; 97116; 97162; 97167; 97530; C1776; C9290; J0171; J0690; J0697; J0735; J0885; J1100; J1815; J1885; J2250; J2274; J2405; J2710; J3010; J3370; J7030; J7120

== ENCOUNTER → 2016-11-10 | Outpatient (CLI) | payer MEDICARE, BC ==
[~2016-11-10] MED LIST: ASPI325T32 PO; ATOR20TA65 PO; CLON-379 PO; DILT240C85 PO; DOCU100T9 PO; ENAL10TA PO; GLIP-95 PO; HYDR-3498 PO; LABE200T3 PO; LANT3I SC; LIRA0.6P SQ; METF500T4 PO; NOVO3I SC; PANT40TA4 PO; TRAM50TA2 PO; VALS1TAB76 PO; VITAMIN D PO
== END | disposition home or self-care (01) ==
LOC: HKI 09:19
PROVIDERS: ATTEND Orthopaedic Surgery
DX: Z47.1 Aftercare following joint replacement surgery (principal); Z96.641 Presence of right artificial hip joint; M16.11 Unilateral primary osteoarthritis, right hip

== ENCOUNTER → 2016-12-08 | Outpatient (CLI) | payer MEDICARE, BC ==
[~2016-12-08] MED LIST changes: +HYDR-906 PO; +ZOLP5TAB PO
--- NOTE | 2016-12-08 14:32 | RADRPT ---
PROCEDURE: XR Right hip and pelvis. CLINICAL INDICATION: Right hip pain. Pelvic pain. Postop. TECHNIQUE: Two views. Frontal pelvis and frontal right hip. COMPARISON: 10/31/2016. FINDINGS: There is no fracture or dislocation. Vascular calcifications are present consistent with atherosclerosis. There is a right hip total arthroplasty which appears satisfactory. There are degenerative changes of the left hip with joint space narrowing, osteophytes, subarticular sclerosis, and deformity. There is no lytic or blastic lesion. The upper pelvis is not completely included on the image. IMPRESSION: 1. Satisfactory postoperative appearance of the right hip. 2. Severe degenerative changes of the left hip. 3. Atherosclerosis. RPTAT: QQ .Ish Hyatt MD, MD Date Time Electronically viewed and signed by .Ish Hyatt MD, on 12/08/2016 14:32 .R/
== END | disposition home or self-care (01) ==
LOC: HKI 10:23
PROVIDERS: ATTEND Orthopaedic Surgery
DX: Z47.1 Aftercare following joint replacement surgery (principal); Z96.641 Presence of right artificial hip joint; M16.0 Bilateral primary osteoarthritis of hip
CPT/HCPCS: 73502

== ENCOUNTER → 2017-01-01 | Outpatient (CLI) | payer MEDICARE, BC ==
[~2017-01-01] MED LIST changes: -HYDR-906 PO; -ZOLP5TAB PO
--- NOTE | 2017-01-01 17:06 | RADRPT ---
PROCEDURE: XR Right hip and pelvis. CLINICAL INDICATION: Right hip pain. Pelvic pain. Postop. TECHNIQUE: Two views. Frontal pelvis and frontal right hip. COMPARISON: 12/08/2016. FINDINGS: There is no fracture or dislocation. Vascular calcifications are present consistent with atherosclerosis. There is a right hip total arthroplasty which appears satisfactory. There are degenerative changes of the left hip with joint space narrowing, osteophytes, subarticular sclerosis, and deformity. There is no lytic or blastic lesion. The upper pelvis is not completely included on the image. IMPRESSION: 1. Satisfactory postoperative appearance of the right hip. 2. Severe degenerative changes of the left hip. 3. Atherosclerosis. 4. No change from 12/08/2016. RPTAT: QQ .Ish Hyatt MD, MD Date Time Electronically viewed and signed by .Ish Hyatt MD, MD on 01/01/2017 17:06 .R/
== END | disposition home or self-care (01) ==
LOC: HKI 14:00
PROVIDERS: ATTEND Orthopaedic Surgery
DX: M16.0 Bilateral primary osteoarthritis of hip (principal); Z96.641 Presence of right artificial hip joint
CPT/HCPCS: 73502